=== PATIENT | male | born 1925 | race Caucasian/White ===

== ENCOUNTER 2016-12-25 18:40 | Emergency (ER) | payer MEDICARE, OTHER, MEDICAID ==
[2016-12-25 19:05] VITALS: BP 107/62
--- NOTE | 2016-12-25 20:46 | EDM.PDOC ---
ED HPI GENERAL MEDICAL PROBLEM - General Chief Complaint: ENT Problem Stated Complaint: ER FROM ASSISTED Time Seen by Provider: 12/25/16 20:40 Source of Information: Reports: Patient History Limitations: Reports: No Limitations - History of Present Illness INITIAL COMMENTS - FREE TEXT/NARRATIVE: This 89 yo male patient reports to the ED with bleeding from the mouth due to a tooth extraction this morning. The patient reports he has run out of the backing materials given to him by Dr. Perry. The bleeding has slowed down, but continues to bleed. Onset: Today Duration: Hour(s):, Constant Location: Reports: Face (Right upper molar extraction) Quality: Reports: Dull Severity: Mild Improves with: Reports: None Worsens with: Reports: None Associated Symptoms: Reports: No Other Symptoms - Related Data Allergies Allergy/AdvReac Type Severity Reaction Status Date / Time pentoxifylline Allergy Dizziness Verified 12/25/16 19:13 piperacillin [From Zosyn] Allergy Itching Verified 12/25/16 19:13 tazobactam [From Zosyn] Allergy Itching Verified 12/25/16 19:13 Home Meds: Home Meds Multivitamin [Multivitamins] 1 tab PO DAILY 06/08/15 [History] Nitroglycerin [Nitrostat] 1 tab SL ASDIRECTED PRN 06/08/15 [History] Oxybutynin 5 mg PO BID 06/08/15 [History] Sennosides/Docusate Sodium [Senna Plus Tablet] 1 tab PO DAILY 06/25/16 [History] Arginine/Ascorbate Sod/Dolly AC [Arginaid Powder] 8 oz PO BID 12/25/16 [History] Ferrous Fumarate [Hemocyte] 324 mg PO BID 12/25/16 [History] Furosemide [Lasix] 20 mg PO ASDIRECTED 12/25/16 [History] Warfarin Sodium [Coumadin] 4 mg PO ASDIRECTED 12/25/16 [History] Past Medical History Cardiovascular History: Reports: Hypertension, [place], Pacemaker, Stents Gastrointestinal History: Reports: Bowel Obstruction, GI Bleed Genitourinary History: Reports: Prostate Disorder Other Genitourinary History: indwelling alarcon Hematologic History: Reports: Anemia, B12 Deficiency Oncologic (Cancer) History: Reports: Prostate - Past Surgical History HEENT Surgical History: Reports: Oral Surgery 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 ED EXAM, ENT - Physical Exam Exam: See Below Exam Limited By: No Limitations General Appearance: Alert, WD/WN, No Apparent Distress Eye Exam: Bilateral Eye: EOMI, Normal Inspection, PERRL Ears: Normal External Exam, Normal Canal, Hearing Grossly Normal, Normal TMs Nose: Normal Inspection, Normal Mucousa, No Blood Mouth/Throat: Normal Inspection, Normal Lips, Normal Oropharynx, Normal Teeth, Other (dental extraction ) Head: Atraumatic, Normocephalic Neck: Normal Inspection, Supple, Non-Tender, Full Range of Motion Respiratory/Chest: No Respiratory Distress, Lungs Clear, Normal Breath Sounds, No Accessory Muscle Use, Chest Non-Tender Cardiovascular: Normal Peripheral Pulses, Regular Rate, Rhythm, No Edema, No Gallop, No JVD, No Murmur, No Rub GI/Abdominal: Normal Bowel Sounds, Soft, Non-Tender, No Organomegaly, No Distention, No Abnormal Bruit, No Mass (Male) Exam: Deferred Rectal (Males) Exam: Deferred Back: Normal Inspection, Full Range of Motion Extremities: Normal Inspection, Normal Range of Motion, Non-Tender, No Pedal Edema, Normal Capillary Refill Psychiatric: Normal Affect, Normal Mood Skin: Warm, Dry, Intact, Normal Color, No Rash Lymphatic: No Adenopathy Course - Vital Signs Last Recorded V/S: Last Vital Signs Temp 36.6 C 12/25/16 19:01 Pulse 63 12/25/16 19:01 Resp 18 12/25/16 19:01 BP 107/62 12/25/16 19:01 Pulse Ox 99 12/25/16 19:01 - Orders/Labs/Meds Labs: Laboratory Tests 12/25/16 12/25/16 Range/Units 19:55 19:55 WBC 6.0 (5.0-10.0) 10^3/uL RBC 3.51 L (4.6-6.2) 10^6/uL Hgb 9.6 L (14.0-18.0) g/dL Hct 30.5 L (40.0-54.0) % MCV 86.9 (80-100) fL MCH 27.4 (27.0-34.0) pg MCHC 31.5 L (33.0-35.0) g/dL Plt Count 218 (150-450) 10^3/uL Neut % (Auto) 76.1 H (42.2-75.2) % Lymph % (Auto) 12.1 L (20.5-50.1) % [place] % (Auto) 6.3 (2-8) % Eos % (Auto) 4.8 H (1.0-3.0) % Baso % (Auto) 0.7 (0.0-1.0) % PT 22.7 H (9.0-12.0) SEC INR 2.3 H (0.9-1.2) Meds: Medications Discontinued Medications Generic Name Dose Route Start Last Admin Trade Name Jaclyn PRN Reason Stop Dose Admin Lidocaine/Epinephrine 50 ml 12/25/16 21:36 Xylocaine 2% With Epinephrine 1:100,000 INJECT 12/25/16 21:37 ONETIME ONE Lidocaine/Epinephrine 20 ml 12/25/16 21:40 12/25/16 21:47 Xylocaine 1% With Epinephrine 1:100,000 INJECT 12/25/16 21:41 20 ml ONETIME ONE Administration - Re-Assessments/Exams Free Text/Narrative Re-Assessment/Exam: 12/25/16 21:40 The patient continued to bleed despite repacking and rinsing. Dr. Gage was called and advised to inject lidocaine with Epi to the area. If the bleeding continues after 15 minutes, Dr. Gage will come to assist. Departure - Departure Time of Disposition: 22:53 Disposition: Home, Self-Care 01 Condition: fair Clinical Impression: Dental injury Qualifiers: Encounter type: initial encounter Qualified Code(s): S09.93XA - Unspecified injury of face, initial encounter - Discharge Information Instructions: Dental Extraction, Care After Forms: ED Department Discharge Care Plan Goals: The patient was advised of the examination results. Dr. Gage came into the ED to back the socket post tooth extraction with good bleeding control. If the patient has any additional symptoms or concerns, the patient should follow-up with his dentist or return to the emergency department.
[2016-12-25] MEDS ORDERED: Lidocaine 2% with EPINEPHrine 1:100,000 50 ML MDV INJECT ONE (21:36)
[2016-12-25] MEDS ORDERED: Lidocaine 1% with EPINEPHrine 1:100,000 20 ML MDV INJECT ONE (21:40)
== END 2016-12-25 23:08 | disposition home or self-care (01) ==
LOC: DL.ED 18:40
DX: S09.93XA Unspecified injury of face, initial encounter (principal); I10 Essential (primary) hypertension; I25.2 Old myocardial infarction; D64.9 Anemia, unspecified; Z98.890 Other specified postprocedural states; Z79.01 Long term (current) use of anticoagulants; Z79.899 Other long term (current) drug therapy; Z88.8 Allergy status to other drugs, medicaments and biological substances; Z95.5 Presence of coronary angioplasty implant and graft; Z88.1 Allergy status to other antibiotic agents; X58.XXXA Exposure to other specified factors, initial encounter
CPT/HCPCS: 36415; 85025; 85610; 99283

== ENCOUNTER 2017-01-17 04:59 | Emergency (ER) | payer MEDICARE, OTHER, MEDICAID ==
--- NOTE | 2017-01-17 05:17 | EDM.PDOC ---
ED HPI GENERAL MEDICAL PROBLEM - General Stated Complaint: COUGH Time Seen by Provider: 01/17/17 05:13 Source of Information: Reports: Patient History Limitations: Reports: No Limitations - History of Present Illness INITIAL COMMENTS - FREE TEXT/NARRATIVE: c/o 10 days h/o cough not seen anyone and not getting better. now chest hurts Abdomen Pain Score (Numeric/FACES): 5 - Related Data Allergies Allergy/AdvReac Type Severity Reaction Status Date / Time pentoxifylline Allergy Dizziness Verified 01/17/17 05:26 piperacillin [From Zosyn] Allergy Itching Verified 01/17/17 05:26 tazobactam [From Zosyn] Allergy Itching Verified 01/17/17 05:26 Home Meds: Home Meds Multivitamin [Multivitamins] 1 tab PO DAILY 06/08/15 [History] Nitroglycerin [Nitrostat] 1 tab SL ASDIRECTED PRN 06/08/15 [History] Oxybutynin 5 mg PO BID 06/08/15 [History] Sennosides/Docusate Sodium [Senna Plus Tablet] 1 tab PO DAILY 06/25/16 [History] Arginine/Ascorbate Sod/Dolly AC [Arginaid Powder] 8 oz PO BID 12/25/16 [History] Ferrous Fumarate [Hemocyte] 324 mg PO BID 12/25/16 [History] Furosemide [Lasix] 20 mg PO ASDIRECTED 12/25/16 [History] Warfarin Sodium [Coumadin] 4 mg PO ASDIRECTED 12/25/16 [History] Past Medical History Cardiovascular History: Reports: Hypertension, [place], Pacemaker, Stents Gastrointestinal History: Reports: Bowel Obstruction, GI Bleed Genitourinary History: Reports: Prostate Disorder Other Genitourinary History: indwelling alarcon Oncologic (Cancer) History: Reports: Prostate - Past Surgical History GI Surgical History: Reports: Colostomy Social & Family History - Family History Family Medical History: Noncontributory - Tobacco Use Smoking Status *Q: Never Smoker Second Hand Smoke Exposure: No - Caffeine Use Caffeine Use: Reports: None - Recreational Drug Use Recreational Drug Use: No - Living Situation & Occupation Living situation: Reports: , with Spouse Occupation: Retired ED ROS GENERAL - Review of Systems Review Of Systems: ROS reveals no pertinent complaints other than HPI. ED EXAM, GENERAL - Physical Exam Exam: See Below Exam Limited By: No Limitations General Appearance: Alert, WD/WN, No Apparent Distress Ears: Hearing Grossly Normal Throat/Mouth: Normal Voice, No Airway Compromise Head: Atraumatic Neck: Non-Tender, Full Range of Motion Respiratory/Chest: Rales, Rhonchi. No: Decreased Breath Sounds, Retractions, Splinting Cardiovascular: Regular Rate, Rhythm GI/Abdominal: Soft, Non-Tender Neurological: Alert, Oriented, Normal Cognition, No Motor/Sensory Deficits Psychiatric: Flat Affect Skin Exam: Warm, Dry Lymphatic: No Adenopathy Course - Vital Signs Last Recorded V/S: Last Vital Signs Temp 35.9 C 01/17/17 05:17 Pulse 74 01/17/17 06:17 Resp 14 01/17/17 06:17 BP 118/54 L 01/17/17 06:17 Pulse Ox 99 01/17/17 06:17 - Orders/Labs/Meds Orders: Active Orders 24 hr Category Date Time Status EKG 12 Lead [EKG Documentation Completion] [RC] STAT Care 01/17/17 05:59 Active RT Aerosol Therapy [RC] ASDIRECTED Care 01/17/17 05:51 Active CXR [Chest 1V Frontal] [CR] Urgent Exams 01/17/17 05:48 Taken CULTURE BLOOD [BC] Stat Lab 01/17/17 05:15 Received Labs: Laboratory Tests 01/17/17 01/17/17 01/17/17 Range/Units 05:15 05:15 05:15 WBC 4.0 L (5.0-10.0) 10^3/uL RBC 3.20 L (4.6-6.2) 10^6/uL Hgb 8.8 L (14.0-18.0) g/dL Hct 29.0 L (40.0-54.0) % MCV 90.6 (80-100) fL MCH 27.5 (27.0-34.0) pg MCHC 30.3 L (33.0-35.0) g/dL Plt Count 203 (150-450) 10^3/uL Neut % (Auto) 68.2 (42.2-75.2) % Lymph % (Auto) 15.0 L (20.5-50.1) % [place] % (Auto) 9.3 H (2-8) % Eos % (Auto) 7.0 H (1.0-3.0) % Baso % (Auto) 0.5 (0.0-1.0) % PT (9.0-12.0) SEC INR (0.9-1.2) Sodium 138 (135-145) mmol/L Potassium 3.6 (3.6-5.0) mmol/L Chloride 102 (101-111) mmol/L Carbon Dioxide 26.0 (21.0-31.0) mmol/L Anion Gap 13.6 BUN 28 H (7-18) mg/dL Creatinine 1.4 H (0.6-1.3) mg/dL Est Cr Clr Drug Dosing 30.75 mL/min Estimated GFR (MDRD) 48 BUN/Creatinine Ratio 20.00 Glucose 97 (74-105) mg/dL Lactic Acid 0.8 (0.5-2.2) mmol/L Calcium 8.4 (8.4-10.2) mg/dl Total Bilirubin 0.5 (0.2-1.0) mg/dL AST 21 (10-42) IU/L ALT 21 (10-60) IU/L Alkaline Phosphatase 94 (42-121) IU/L Troponin I (0.00-0.02) ng/ml B-Natriuretic Peptide 186 H (0-100) pg/ml Total Protein 6.8 (6.7-8.2) g/dl Albumin 3.2 (3.2-5.5) g/dl Globulin 3.6 Albumin/Globulin Ratio 0.89 17 01/17/17 Range/Units 05:15 05:15 WBC (5.0-10.0) 10^3/uL RBC (4.6-6.2) 10^6/uL Hgb (14.0-18.0) g/dL Hct (40.0-54.0) % MCV (80-100) fL MCH (27.0-34.0) pg MCHC (33.0-35.0) g/dL Plt Count (150-450) 10^3/uL Neut % (Auto) (42.2-75.2) % Lymph % (Auto) (20.5-50.1) % [place] % (Auto) (2-8) % Eos % (Auto) (1.0-3.0) % Baso % (Auto) (0.0-1.0) % PT 26.6 H (9.0-12.0) SEC INR 2.6 H (0.9-1.2) Sodium (135-145) mmol/L Potassium (3.6-5.0) mmol/L Chloride (101-111) mmol/L Carbon Dioxide (21.0-31.0) mmol/L Anion Gap BUN (7-18) mg/dL Creatinine (0.6-1.3) mg/dL Est Cr Clr Drug Dosing mL/min Estimated GFR (MDRD) BUN/Creatinine Ratio Glucose (74-105) mg/dL Lactic Acid (0.5-2.2) mmol/L Calcium (8.4-10.2) mg/dl Total Bilirubin (0.2-1.0) mg/dL AST (10-42) IU/L ALT (10-60) IU/L Alkaline Phosphatase (42-121) IU/L Troponin I 0.04 H* (0.00-0.02) ng/ml B-Natriuretic Peptide (0-100) pg/ml Total Protein (6.7-8.2) g/dl Albumin (3.2-5.5) g/dl Globulin Albumin/Globulin Ratio Meds: Medications Discontinued Medications Generic Name Dose Route Start Last Admin Trade Name Freq PRN Reason Stop Dose Admin Albuterol/Ipratropium 3 ml 01/17/17 05:51 01/17/17 05:57 Duoneb 3.0-0.5 Mg/3 Ml NEB 01/17/17 05:52 3 ml ONETIME ONE Administration Benzonatate 100 mg 01/17/17 05:52 01/17/17 05:57 Tessalon Perles PO 01/17/17 05:53 100 mg ONETIME ONE Administration Tramadol HCl 50 mg 01/17/17 06:44 Ultram PO 01/17/17 06:45 ONETIME ONE - Re-Assessments/Exams Free Text/Narrative Re-Assessment/Exam: 01/17/17 06:47 results discussed with Pt who is feeling much better post duoneb. Departure - Departure Time of Disposition: 06:48 Disposition: DC/Tfer to [facility] Condition: Good Clinical Impression: Bronchospasm with bronchitis, acute - Discharge Information Instructions: Acute Bronchitis, [id number] Forms: ED Department Discharge Additional Instructions: 1) rest 2) have neb treatment 3 times daily for cough 3) give tramadol 50mg twice daily as needed for pain 4) follow up with family doctor Thursday or recheck if there is any change or concern - My Orders Last 24 Hours: My Active Orders 01/17/17 05:15 CULTURE BLOOD [BC] Stat 01/17/17 05:48 CXR [Chest 1V Frontal] [CR] Urgent 01/17/17 05:51 RT Aerosol Therapy [RC] ASDIRECTED 01/17/17 05:59 EKG 12 Lead [EKG Documentation Completion] [RC] STAT - Assessment/Plan Last 24 Hours: My Active Orders 01/17/17 05:15 CULTURE BLOOD [BC] Stat 01/17/17 05:48 CXR [Chest 1V Frontal] [CR] Urgent 01/17/17 05:51 RT Aerosol Therapy [RC] ASDIRECTED 01/17/17 05:59 EKG 12 Lead [EKG Documentation Completion] [RC] STAT
[2017-01-17] MEDS ORDERED: Albuterol/Ipratropium 3.0-0.5 MG/3 ML Neb Soln NEB ONE (05:51)
[2017-01-17] MEDS ORDERED: Benzonatate 100 MG Cap PO ONE (05:52)
[2017-01-17 06:17] VITALS: BP 118/54
[2017-01-17] MEDS ORDERED: traMADol 50 MG Tab PO ONE (06:44)
--- NOTE | 2017-02-23 09:41 | EKG ---
01/17/2017 - MARCOS FRANK- EKG is sinus rhythm with a rate of 68. There is a borderline first-degree AV block. [place] is within normal limits. There are occasional PACs. Otherwise EKG is within normal limits. [facility] /[id number]
== END 2017-01-17 07:35 ==
LOC: DL.ED 04:59
DX: J20.9 Acute bronchitis, unspecified (principal); I10 Essential (primary) hypertension; I25.2 Old myocardial infarction; Z88.1 Allergy status to other antibiotic agents; Z88.8 Allergy status to other drugs, medicaments and biological substances; Z79.899 Other long term (current) drug therapy; Z79.01 Long term (current) use of anticoagulants
CPT/HCPCS: 36415; 71010; 80053; 83605; 83880; 84484; 85025; 85610; 87040; 93005; 93010; 94640; 99283; 99284; A9270

== ENCOUNTER 2017-06-20 04:37 | Emergency (ER) | payer MEDICARE, OTHER, MEDICAID ==
--- NOTE | 2017-06-20 04:39 | EDM.PDOC ---
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 states Dr Tellez from did the surgery. started having abd' pain since last week Thursday but nothing draining into bag since yesterday 3pm and pain tonigh gotten worse and now thinks has bowel obstruction and wishes [facility] tranf' explained to pt re; necessity of w/u first prior to contacting [facility] for transf' pt concurred. records showed pt has same problem in Jun-2016 and transf to [facility]. Abdomen Pain Score (Numeric/FACES): 6 - Related Data Allergies Allergy/AdvReac Type Severity Reaction Status Date / Time pentoxifylline Allergy Dizziness Verified 06/20/17 04:55 piperacillin [From Zosyn] Allergy Itching Verified 06/20/17 04:55 tazobactam [From Zosyn] Allergy Itching Verified 06/20/17 04:55 Home Meds: Home Meds Multivitamin [Multivitamins] 1 tab PO DAILY 06/08/15 [History] Nitroglycerin [Nitrostat] 1 tab SL ASDIRECTED PRN 06/08/15 [History] Oxybutynin 5 mg PO BID 06/08/15 [History] Sennosides/Docusate Sodium [Senna Plus Tablet] 1 tab PO DAILY 06/25/16 [History] Arginine/Ascorbate Sod/Dolly AC [Arginaid Powder] 8 oz PO BID 12/25/16 [History] Ferrous Fumarate [Hemocyte] 324 mg PO BID 12/25/16 [History] Furosemide [Lasix] 20 mg PO ASDIRECTED 12/25/16 [History] Warfarin Sodium [Coumadin] 4 mg PO ASDIRECTED 12/25/16 [History] Past Medical History HEENT History: Reports: Impaired Vision Cardiovascular History: Reports: Hypertension, [place], Pacemaker, Stents Gastrointestinal History: Reports: Bowel Obstruction, GI Bleed Genitourinary History: Reports: Prostate Disorder Other Genitourinary History: indwelling alarcon Hematologic History: Reports: Anemia, Blood Transfusion(s) Oncologic (Cancer) History: Reports: Prostate - Past Surgical History GI Surgical History: Reports: Colostomy Social & Family History - Family History Family Medical History: Noncontributory - Tobacco Use Smoking Status *Q: Never Smoker Second Hand Smoke Exposure: No - Caffeine Use Caffeine Use: Reports: None - Recreational Drug Use Recreational Drug Use: No - Living Situation & Occupation Living situation: Reports: , with Spouse Occupation: Retired ED ROS GENERAL - Review of Systems Review Of Systems: ROS reveals no pertinent complaints other than HPI. ED EXAM, GI/ABD - Physical Exam Exam: See Below Exam Limited By: No Limitations General Appearance: Alert, WD/WN, Anxious, Mild Distress, Other (upset) Ears: Hearing Grossly Normal Throat/Mouth: Normal Voice, No Airway Compromise Head: Atraumatic Neck: Non-Tender, Full Range of Motion Respiratory/Chest: No Respiratory Distress Cardiovascular: Regular Rate, Rhythm GI/Abdominal Exam: Other (open wound with mild drainage, tender along stoma, BS increased) Neurological: Alert, Oriented, Normal Cognition, Normal Gait, No Motor/Sensory Deficits Psychiatric: Anxious, Flat Affect Skin Exam: Warm, Dry, Normal Color Lymphatic: No Adenopathy Course - Vital Signs Last Recorded V/S: Last Vital Signs Temp 36.6 C 06/20/17 04:42 Pulse 61 06/20/17 04:42 Resp 18 06/20/17 04:42 BP 102/56 L 06/20/17 04:42 Pulse Ox 100 06/20/17 04:42 - Orders/Labs/Meds Orders: Active Orders 24 hr Category Date Time Status Abdomen Pelvis wo Cont [CT] Urgent Exams 06/20/17 04:41 Taken CULTURE BLOOD [BC] Stat Lab 06/20/17 04:50 Received CULTURE WOUND [RM] Stat Lab 06/20/17 04:30 Received Labs: Laboratory Tests 06/20/17 06/20/17 06/20/17 Range/Units 04:50 04:50 04:50 WBC 5.1 (5.0-10.0) 10^3/uL RBC 3.16 L (4.6-6.2) 10^6/uL Hgb 9.0 L (14.0-18.0) g/dL Hct 28.4 L (40.0-54.0) % MCV 89.9 (80-100) fL MCH 28.5 (27.0-34.0) pg MCHC 31.7 L (33.0-35.0) g/dL Plt Count 238 (150-450) 10^3/uL Neut % (Auto) 71.8 (42.2-75.2) % Lymph % (Auto) 13.2 L (20.5-50.1) % [place] % (Auto) 7.9 (2-8) % Eos % (Auto) 6.3 H (1.0-3.0) % Baso % (Auto) 0.8 (0.0-1.0) % Sodium 135 (135-145) mmol/L Potassium 3.6 (3.6-5.0) mmol/L Chloride 101 (101-111) mmol/L Carbon Dioxide 25.0 (21.0-31.0) mmol/L Anion Gap 12.6 BUN 23 H (7-18) mg/dL Creatinine 1.4 H (0.6-1.3) mg/dL Est Cr Clr Drug Dosing 30.98 mL/min Estimated GFR (MDRD) 48 BUN/Creatinine Ratio 16.42 Glucose 121 H (74-105) mg/dL Lactic Acid 0.9 (0.5-2.2) mmol/L Calcium 8.1 L (8.4-10.2) mg/dl Total Bilirubin 0.4 (0.2-1.0) mg/dL AST 18 (10-42) IU/L ALT 18 (10-60) IU/L Alkaline Phosphatase 74 (42-121) IU/L Total Protein 6.1 L (6.7-8.2) g/dl Albumin 2.8 L (3.2-5.5) g/dl Globulin 3.3 Albumin/Globulin Ratio 0.85 - Re-Assessments/Exams Free Text/Narrative Re-Assessment/Exam: 06/20/17 06:23 results discussed with pt. case discussed with Dr Jenkins @ who kindly accepted pt. Departure - Departure Time of Disposition: 06:24 Disposition: DC/Tfer to Acute Hospital 02 Condition: Fair Clinical Impression: Bowel obstruction Qualifiers: Intestinal obstruction type: obstruction due to adhesions Intestinal obstruction extent: unspecified extent Qualified Code(s): K56.50 - Intestinal adhesions [bands], unspecified as to partial versus complete obstruction Postoperative wound dehiscence Qualifiers: Encounter type: subsequent encounter Qualified Code(s): T81.31XD - Disruption of external operation (surgical) wound, not elsewhere classified, subsequent encounter - Discharge Information Forms: Interfacility Transfer EMTALA - My Orders Last 24 Hours: My Active Orders 06/20/17 04:30 CULTURE WOUND [RM] Stat 06/20/17 04:41 Abdomen Pelvis wo Cont [CT] Urgent 06/20/17 04:50 CULTURE BLOOD [BC] Stat - Assessment/Plan Last 24 Hours: My Active Orders 06/20/17 04:30 CULTURE WOUND [RM] Stat 06/20/17 04:41 Abdomen Pelvis wo Cont [CT] Urgent 06/20/17 04:50 CULTURE BLOOD [BC] Stat
[2017-06-20 04:46] VITALS: BP 102/56
== END 2017-06-20 07:09 ==
LOC: DL.ED 04:37
DX: K56.50 Intestinal adhesions [bands], unspecified as to partial versus complete obstruction (principal); T81.31XD Disruption of external operation (surgical) wound, not elsewhere classified, subsequent encounter; I10 Essential (primary) hypertension; Z88.1 Allergy status to other antibiotic agents; Z79.899 Other long term (current) drug therapy; Z79.01 Long term (current) use of anticoagulants
CPT/HCPCS: 36415; 74176; 80053; 83605; 85025; 87040; 87070; 87077; 87186; 99285

== ENCOUNTER 2017-08-23 18:43 | Emergency (ER) | payer MEDICARE, OTHER, MEDICAID ==
--- NOTE | 2017-08-23 19:07 | EDM.PDOC ---
ED HPI GENERAL MEDICAL PROBLEM - General Chief Complaint: Gastrointestinal Problem Stated Complaint: BRONCHITIS Time Seen by Provider: 08/23/17 19:02 Source of Information: Reports: Patient History Limitations: Reports: No Limitations - History of Present Illness INITIAL COMMENTS - FREE TEXT/NARRATIVE: states hadn't been feeling good for 3 weeks now. thinks it was Thursday that Jack Berman check in at the [facility] and eval him with some tests and never came back. states no energy no strength no appetite no output from colostomy. c/o pn off abd discomfort. denies CP/SOB. - Related Data Allergies Allergy/AdvReac Type Severity Reaction Status Date / Time pentoxifylline Allergy Dizziness Verified 08/23/17 18:49 piperacillin [From Zosyn] Allergy Itching Verified 08/23/17 18:49 tazobactam [From Zosyn] Allergy Itching Verified 08/23/17 18:49 Home Meds: Home Meds Multivitamin [Multivitamins] 1 tab PO DAILY 06/08/15 [History] Nitroglycerin [Nitrostat] 1 tab SL ASDIRECTED PRN 06/08/15 [History] Oxybutynin 5 mg PO BID 06/08/15 [History] Sennosides/Docusate Sodium [Senna Plus Tablet] 1 tab PO DAILY 06/25/16 [History] Arginine/Ascorbate Sod/Dolly AC [Arginaid Powder] 8 oz PO BID 12/25/16 [History] Ferrous Fumarate [Hemocyte] 324 mg PO BID 12/25/16 [History] Furosemide [Lasix] 20 mg PO ASDIRECTED 12/25/16 [History] Warfarin Sodium [Coumadin] 4 mg PO ASDIRECTED 12/25/16 [History] Past Medical History HEENT History: Reports: Impaired Vision Cardiovascular History: Reports: Hypertension, [place], Pacemaker, Stents Gastrointestinal History: Reports: Bowel Obstruction, GI Bleed Genitourinary History: Reports: Prostate Disorder Other Genitourinary History: indwelling alarcon Hematologic History: Reports: Anemia, Blood Transfusion(s) Oncologic (Cancer) History: Reports: Prostate - Past Surgical History GI Surgical History: Reports: Colostomy Social & Family History - Family History Family Medical History: Noncontributory - Tobacco Use Smoking Status *Q: Never Smoker Second Hand Smoke Exposure: No - Caffeine Use Caffeine Use: Reports: None - Recreational Drug Use Recreational Drug Use: No - Living Situation & Occupation Living situation: Reports: , with Spouse Occupation: Retired ED ROS GENERAL - Review of Systems Review Of Systems: ROS reveals no pertinent complaints other than HPI. ED EXAM, GI/ABD - Physical Exam Exam: See Below Exam Limited By: No Limitations General Appearance: Alert, WD/WN, Mild Distress, Other (distraught & upset) Ears: Hearing Grossly Normal Throat/Mouth: Normal Voice, No Airway Compromise Head: Atraumatic Neck: Non-Tender, Full Range of Motion Respiratory/Chest: No Respiratory Distress, No Accessory Muscle Use, Rhonchi, Other (basilar) Cardiovascular: Regular Rate, Rhythm GI/Abdominal Exam: Soft, Tender, Other (minimal periumb discomfort, BS hyper). No: Distended, Guarding, Rigid, Rebound Neurological: Alert, Normal Cognition, No Motor/Sensory Deficits Psychiatric: Flat Affect Skin Exam: Warm, Dry, Normal Color Lymphatic: No Adenopathy Course - Vital Signs Last Recorded V/S: Last Vital Signs Temp 36.9 C 08/23/17 19:12 Pulse 57 L 08/23/17 19:12 Resp 18 08/23/17 19:12 BP 127/70 08/23/17 19:12 Pulse Ox 93 L 08/23/17 19:12 - Orders/Labs/Meds Orders: Active Orders 24 hr Category Date Time Status Abdomen Pelvis wo Cont [CT] Urgent Exams 08/23/17 19:42 Taken Sodium Chloride 0.9% [Normal Saline] 1,000 ml Med 08/23/17 19:44 Active IV .BOLUS Medication Orders Sodium Chloride (Normal Saline) 1,000 mls @ 500 mls/hr IV .BOLUS ONE Stop: 08/23/17 21:43 Last Admin: 08/23/17 20:15 Dose: 500 mls/hr Labs: Laboratory Tests 08/23/17 08/23/17 08/23/17 Range/Units 19:12 19:12 19:12 WBC 7.2 (5.0-10.0) 10^3/uL RBC 3.74 L (4.6-6.2) 10^6/uL Hgb 10.4 L (14.0-18.0) g/dL Hct 33.1 L (40.0-54.0) % MCV 88.5 (80-100) fL MCH 27.8 (27.0-34.0) pg MCHC 31.4 L (33.0-35.0) g/dL Plt Count 370 D (150-450) 10^3/uL Neut % (Auto) 90.1 H (42.2-75.2) % Lymph % (Auto) 4.3 L (20.5-50.1) % [place] % (Auto) 5.2 (2-8) % Eos % (Auto) 0.3 L (1.0-3.0) % Baso % (Auto) 0.1 (0.0-1.0) % PT (9.0-12.0) SEC INR (0.9-1.2) Sodium 139 (135-145) mmol/L Potassium 3.9 (3.6-5.0) mmol/L Chloride 101 (101-111) mmol/L Carbon Dioxide 29.0 (21.0-31.0) mmol/L Anion Gap 12.9 BUN 42 H (7-18) mg/dL Creatinine 1.3 (0.6-1.3) mg/dL Est Cr Clr Drug Dosing 30.65 mL/min Estimated GFR (MDRD) 52 BUN/Creatinine Ratio 32.30 Glucose 105 (74-105) mg/dL Lactic Acid 1.6 (0.5-2.2) mmol/L Calcium 8.5 (8.4-10.2) mg/dl Total Bilirubin 1.0 (0.2-1.0) mg/dL AST 26 (10-42) IU/L ALT 17 (10-60) IU/L Alkaline Phosphatase 59 (42-121) IU/L Total Protein 6.4 L (6.7-8.2) g/dl Albumin 2.6 L (3.2-5.5) g/dl Globulin 3.8 Albumin/Globulin Ratio 0.68 /18 Range/Units 19:12 WBC (5.0-10.0) 10^3/uL RBC (4.6-6.2) 10^6/uL Hgb (14.0-18.0) g/dL Hct (40.0-54.0) % MCV (80-100) fL MCH (27.0-34.0) pg MCHC (33.0-35.0) g/dL Plt Count (150-450) 10^3/uL Neut % (Auto) (42.2-75.2) % Lymph % (Auto) (20.5-50.1) % [place] % (Auto) (2-8) % Eos % (Auto) (1.0-3.0) % Baso % (Auto) (0.0-1.0) % PT > 120.0 H D (9.0-12.0) SEC INR > 10.0 H* (0.9-1.2) Sodium (135-145) mmol/L Potassium (3.6-5.0) mmol/L Chloride (101-111) mmol/L Carbon Dioxide (21.0-31.0) mmol/L Anion Gap BUN (7-18) mg/dL Creatinine (0.6-1.3) mg/dL Est Cr Clr Drug Dosing mL/min Estimated GFR (MDRD) BUN/Creatinine Ratio Glucose (74-105) mg/dL Lactic Acid (0.5-2.2) mmol/L Calcium (8.4-10.2) mg/dl Total Bilirubin (0.2-1.0) mg/dL AST (10-42) IU/L ALT (10-60) IU/L Alkaline Phosphatase (42-121) IU/L Total Protein (6.7-8.2) g/dl Albumin (3.2-5.5) g/dl Globulin Albumin/Globulin Ratio Meds: Medications Generic Name Dose Route Start Last Admin Trade Name Freq PRN Reason Stop Dose Admin Sodium Chloride 1,000 mls @ 500 mls/hr 08/23/17 19:44 08/23/17 20:15 Normal Saline IV 08/23/17 21:43 500 mls/hr .BOLUS ONE Administration Discontinued Medications Generic Name Dose Route Start Last Admin Trade Name Freq PRN Reason Stop Dose Admin Phytonadione 10 mg/ Sodium 51 mls @ 100 mls/hr 08/23/17 19:57 08/23/17 20:16 Chloride IV 08/23/17 20:27 100 mls/hr NOW ONE Administration - Re-Assessments/Exams Free Text/Narrative Re-Assessment/Exam: 08/23/17 20:[address] Meyer @ who kindly accepted pt. Departure - Departure Time of Disposition: 20:30 Disposition: DC/Tfer to Acute Hospital 02 Condition: Fair Clinical Impression: Small bowel obstruction, Elevated INR - Discharge Information Forms: Interfacility Transfer EMTALA - My Orders Last 24 Hours: My Active Orders 08/23/17 19:42 Abdomen Pelvis wo Cont [CT] Urgent 08/23/17 19:44 Sodium Chloride 0.9% [Normal Saline] 1,000 ml IV .BOLUS - Assessment/Plan Last 24 Hours: My Active Orders 08/23/17 19:42 Abdomen Pelvis wo Cont [CT] Urgent 08/23/17 19:44 Sodium Chloride 0.9% [Normal Saline] 1,000 ml IV .BOLUS
[2017-08-23 19:13] VITALS: BP 127/70
[2017-08-23 19:39] LABS: ANION GAP 12.9
[2017-08-23] MEDS ORDERED: Sodium Chloride 0.9% 1,000 ML IV ONE (19:44)
[2017-08-23] MEDS ORDERED: Phytonadione 10 MG in Sodium Chloride 0.9% 50 ML IV ONE (19:57)
== END 2017-08-23 21:36 ==
LOC: DL.ED 18:43
DX: K56.609 Unspecified intestinal obstruction, unspecified as to partial versus complete obstruction (principal); R79.1 Abnormal coagulation profile; I10 Essential (primary) hypertension; Z88.1 Allergy status to other antibiotic agents; Z88.8 Allergy status to other drugs, medicaments and biological substances; Z79.01 Long term (current) use of anticoagulants; Z79.899 Other long term (current) drug therapy
CPT/HCPCS: 36415; 74176; 80053; 83605; 85025; 85610; 96361; 96365; 99285; J3430; J7030; J7050